=== PATIENT | female | born 2000 | race Native Hawaiian/Other Pacific Islander ===

== ENCOUNTER 2021-05-31 11:39 | Emergency (ER) | payer OTHER ==
[~2021-05-31] VITALS: Ht 167.6 cm; Wt 49.9 kg
[2021-05-31 12:50] LABS: PLATELET COUNT 135 K/uL (152-353)
[2021-05-31 12:56] LABS: POTASSIUM 4.1 mmol/L (3.6-5.2); SODIUM 137 mmol/L (136-145)
[2021-05-31 15:00] VITALS: BP 108/68; TEMP 98.2
== END 2021-05-31 15:00 | disposition home or self-care (01) ==
LOC: ED 11:39
PROVIDERS: Emergency Medicine Emergency Medical Services
DX: J20.9 Acute bronchitis, unspecified (principal); R09.1 Pleurisy; Z20.822 Contact with and (suspected) exposure to COVID-19
CPT/HCPCS: 36415; 80048; 81025; 84484; 85027; 85379; 87502; 87635; 96360; 96375; 99284; J1885; U0003

== ENCOUNTER 2021-12-24 00:38 | Emergency (ER) | payer OTHER ==
[~2021-12-24] VITALS: Ht 167.6 cm; Wt 49.9 kg
[2021-12-24 01:46] VITALS: BP 128/74; TEMP 98.1
== END 2021-12-24 01:46 | disposition home or self-care (01) ==
LOC: ED 00:38
DX: J06.9 Acute upper respiratory infection, unspecified (principal); Z20.822 Contact with and (suspected) exposure to COVID-19
CPT/HCPCS: 87635; 87651; 96372; 99283; J1100; J2405; U0003

== ENCOUNTER 2022-06-15 16:14 | Emergency (ER) | payer OTHER ==
[~2022-06-15] VITALS: Ht 167.6 cm; Wt 52.2 kg
[2022-06-15 16:18] VITALS: BP 107/77; TEMP 97.4
== END 2022-06-15 17:54 | disposition home or self-care (01) ==
LOC: ED 16:14
DX: N39.0 Urinary tract infection, site not specified (principal); J20.9 Acute bronchitis, unspecified; Z20.822 Contact with and (suspected) exposure to COVID-19; F17.290 Nicotine dependence, other tobacco product, uncomplicated
CPT/HCPCS: 81000; 81025; 87077; 87086; 87088; 87186; 87502; 87635; 87651; 99283; U0003

== ENCOUNTER 2022-07-09 18:33 | Emergency (ER) | payer OTHER ==
[~2022-07-09] VITALS: Ht 167.6 cm; Wt 49.4 kg
[2022-07-09 18:47] VITALS: BP 96/68; TEMP 98.9
== END 2022-07-09 19:33 | disposition home or self-care (01) ==
LOC: ED 18:33
DX: B34.9 Viral infection, unspecified (principal)
CPT/HCPCS: 87502; 99282